=== PATIENT | male | born 1995 | race Caucasian/White ===

== ENCOUNTER 2019-07-03 15:57 | Emergency (ER) | payer MEDICAID ==
--- NOTE | 2019-07-03 17:32 | ED Physician Documentation ---
History of Present Illness - Stated complaint Stated Complaint: N/V/D - Chief complaint Chief Complaint: General - History obtained from History obtained from: Patient - History of Present Illness Timing: How many weeks ago (8) - Additonal information Additional information: This is a 24-year-old presents [place] in early May he started to have Weekly episodes of crampy rumbling abdominal pain that would be relieved with a diarrheal stool. Says it only happened 1 time in the morning then he will go to the bathroom and have a stool about every couple hours through that day and then things will be normal. He gets real sweaty before he has the bowel movement. He has not done any significant dietary changes are noted anything that results in this episodes. He has not seen blood in the stool. He rarely drinks alcohol and denies use of any drugs including marijuana. He has developed a little bit of low back pain. No fever. He has not yet established with a primary care provider and he is working at a [employer] up in [place]. Review of Systems Constitutional: denies: Fever GI: reports: Abdominal Pain, Nausea, Diarrhea. denies: Bloody / black stool : denies: Dysuria Musculoskeletal: reports: Back pain PD PAST MEDICAL HISTORY - Past Medical History Past Medical History: No Cardiovascular: None Respiratory: None Neuro: None Endocrine/Autoimmune: None GI: None : None HEENT: None Psych: None Musculoskeletal: None Derm: None - Past Surgical History Past Surgical History: No - Present Medications Home Medications: Ambulatory Orders Medication Instructions Recorded Confirmed No Known Home Medications 07/03/19 07/03/19 - Allergies Allergies/Adverse Reactions: Allergies Allergy/AdvReac Type Severity Reaction Status Date / Time No Known Drug Allergies Allergy Verified 07/03/19 16:20 - Social History Does the pt smoke?: Yes Smoking Status: Current every day smoker Does the pt drink ETOH?: Yes Does the pt have substance abuse?: No - Immunizations Immunizations are current?: No Immunizations: Other immun not current - POLST Patient has POLST: No PD ED PE NORMAL - Vitals Vital signs reviewed: Yes - General General: Alert and oriented X 3, No acute distress, Well developed/nourished, Other (Thin 24-year-old who is not in any acute distress.) - HEENT HEENT: Atraumatic, PERRL, EOMI, Moist mucous membranes, Other (No scleral icterus) - Neck Neck: Supple, no meningeal sign, No adenopathy - Cardiac Cardiac: RRR, No murmur, Strong equal pulses - Respiratory Respiratory: No respiratory distress, Clear bilaterally - Abdomen Abdomen: Normal bowel sounds, Soft, Non tender, Non distended, No organomegaly - Extremities Extremities: No edema - Neuro Neuro: Alert and oriented X 3, brim curler 2-12 intact, No motor deficit, No sensory deficit, Normal speech Results - Vitals Vitals: Vital Signs - 24 hr 07/03/19 16:17 Temperature 36.8 C Heart Rate 64 Respiratory 18 Rate Blood Pressure 141/62 H O2 Saturation 99 Oxygen O2 Source Room air PD MEDICAL DECISION MAKING - ED course Complexity details: d/w patient ED course: Is a 24-year-old with weekly episodes of diarrhea. He has no apparent dehydration on clinical exam and has a nonsurgical abdomen. 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 He states understanding. Departure - Departure Disposition: 01 Home, Self Care Clinical Impression: Diarrhea Qualifiers: Diarrhea type: unspecified type Qualified Code(s): R19.7 - Diarrhea, unspecified Condition: Good Instructions: ED IBS Follow-Up: [facility] [Provider Group] Comments: You have been provided a requisition for stool studies. You should bring a specimen to the lab for them to evaluate for sources of infection. I would highly recommend that you follow-up with a primary care provider about your persistent symptoms. If your stool studies are negative you should probably have an endoscopy performed.
[2019-07-03 18:10] VITALS: BP 132/64
== END 2019-07-03 18:12 | disposition home or self-care (01) ==
LOC: ED 15:57
DX: R19.7 Diarrhea, unspecified (principal); F17.200 Nicotine dependence, unspecified, uncomplicated
CPT/HCPCS: 99282; 99284

== ENCOUNTER 2022-07-26 00:27 | Emergency (ER) | payer MEDICAID ==
[2022-07-26 00:57] LABS: BASOPHILS % (AUTO) 0.5 %; EOSINOPHILS # (AUTO) 0.2 10^3/uL (0.0-0.7); EOSINOPHILS % (AUTO) 2.2 %; HCT - HEMATOCRIT 45.7 % (42.0-52.0); LYMPHOCYTES # (AUTO) 2.3 10^3/uL (1.5-3.5); LYMPHOCYTES % (AUTO) 31.4 %; MEAN CORPUSCULAR HEMOGLOBIN 28.2 pg (27.0-31.0); MEAN CORPUSCULAR HGB CONC 32.8 g/dL (32.0-36.0); MEAN CORPUSCULAR VOLUME 85.9 fL (80.0-94.0); MEAN PLATELET VOLUME 10.2 fL (7.4-11.4); MONOCYTES # (AUTO) 1.1 10^3/uL (0.0-1.0); MONOCYTES % (AUTO) 14.6 %; NEUTROPHILS # (AUTO) 3.8 10^3/uL (1.5-6.6); NEUTROPHILS % (AUTO) 51.2 %; PLT - PLATELET COUNT 109 10^3/uL (130-450); RED BLOOD COUNT 5.32 10^6/uL (4.70-6.10); RED CELL DISTRIBUTION WIDTH 11.5 % (12.0-15.0); WHITE BLOOD COUNT 7.4 x10^3/uL (4.8-10.8)
--- NOTE | 2022-07-26 01:04 | ED Physician Documentation ---
PD HPI ABD PAIN - Stated complaint Stated Complaint: ABD PX/CRAMP - Chief complaint Chief Complaint: Abd Pain - History obtained from History obtained from: Patient - History of Present Illness Timing - onset: How many hours ago (12) Timing - duration: Hours (12) Timing - details: Gradual onset, Still present (has worsened the past 3 hours.) Quality: Cramping, Aching, Pain Location: Periumbilical, RLQ Radiation: No: Chest, Lower back Improved by: Laying still. No: BM Worsened by: Eating, Moving, Palpation. No: Breathing Associated symptoms: Nausea, Diarrhea (single loose stool shortly after pain onset.), Loss of appetite. No: Fever, Vomiting, Chest pain, Near syncope / syncope Similar symptoms before: Has not had sx before Recently seen: Not recently seen Review of Systems Constitutional: reports: Myalgias. denies: Fever, Chills Nose: denies: Rhinorrhea / runny nose, Congestion Throat: denies: Sore throat Cardiac: denies: Chest pain / pressure, Palpitations Respiratory: denies: Dyspnea, Cough GI: reports: Abdominal Pain (just the past 12 hours.), Nausea, Diarrhea (single episdoe today). denies: Abdominal Swelling, Vomiting, Constipation, Bloody / black stool : denies: Dysuria, Frequency Skin: reports: Other (several months of progressive pathcy darker colored areas on abd and spread to chest and upper arms. no redness nor tender.) Musculoskeletal: denies: Neck pain, Back pain Neurologic: reports: Generalized weakness. denies: Near syncope, Altered mental status, Headache PD PAST MEDICAL HISTORY - Past Medical History Cardiovascular: None Respiratory: None Neuro: None Endocrine/Autoimmune: None GI: None : None HEENT: None Psych: None Musculoskeletal: None Derm: None - Past Surgical History Past Surgical History: No - Present Medications Home Medications: Ambulatory Orders Medication Instructions Recorded Confirmed Ketoconazole [Nizoral A-D] 1 applic TP DAILY 5 Days #125 ml 07/26/22 Ondansetron Odt [Zofran] 4 mg TL Q6H PRN #10 tablet 07/26/22 Oxycodone HCl/Acetaminophen 1 each PO Q6H PRN #10 tablet 07/26/22 [Percocet 5-325 mg Tablet] - Allergies Allergies/Adverse Reactions: Allergies Allergy/AdvReac Type Severity Reaction Status Date / Time No Known Drug Allergies Allergy Verified 07/26/22 00:38 - Social History Does the pt smoke?: Yes Smoking Status: Current every day smoker Does the pt drink ETOH?: Yes Does the pt have substance abuse?: No - Immunizations Immunizations are current?: No Immunizations: Other immun not current - POLST Patient has POLST: No PD ED PE NORMAL - Vitals Vital signs reviewed: Yes - General General: Alert and oriented X 3, Well developed/nourished - HEENT HEENT: Pharynx benign - Neck Neck: Supple, no meningeal sign, No adenopathy - Cardiac Cardiac: RRR, No murmur - Respiratory Respiratory: No respiratory distress, Clear bilaterally - Abdomen Abdomen: Soft, Non distended, No organomegaly, Other (Markedly tender in the epigastric to right upper quadrant area with guarding and percussion tenderness. Lower abdomen is nontender.) - Male Male : Deferred - Rectal Rectal: Deferred - Back Back: No CVA TTP - Derm Derm: Normal color, Warm and dry, Other (abd/chest and upper arms with patchy, nonscaling, nonraised, hyperpigmented variable sized/shaped areas of skin change. appears c/w tinea versicolor. ) - Extremities Extremities: No tenderness to palpate, Normal ROM s pain, No edema, No calf tenderness / cord - Neuro Neuro: Alert and oriented X 3, No motor deficit, Normal speech Eye Opening: Spontaneous Motor: Obeys Commands Verbal: Oriented GCS Score: 15 Results - Vitals Vitals: Vital Signs - 24 hr 07/26/22 07/26/22 07/26/22 00:35 02:31 02:57 Temperature 36.9 C Heart Rate 80 77 73 Respiratory 20 18 14 Rate Blood Pressure 122/101 H 120/78 124/16 L O2 Saturation 100 100 100 07/26/22 07/26/22 04:00 05:49 Temperature Heart Rate 65 72 Respiratory 17 18 Rate Blood Pressure 140/73 H 135/92 H O2 Saturation 98 100 Oxygen O2 Source Room air - Labs Labs: Laboratory Tests 07/26/22 07/26/22 07/26/22 00:50 00:50 02:28 WBC 7.4 RBC 5.32 Hgb 15.0 Hct 45.7 MCV 85.9 MCH 28.2 MCHC 32.8 RDW 11.5 L Plt Count 109 L MPV 10.2 Neut # (Auto) 3.8 Lymph # (Auto) 2.3 [place] # (Auto) 1.1 H Eos # (Auto) 0.2 Baso # (Auto) 0.0 Absolute Nucleated RBC 0.00 Nucleated RBC % 0.0 Sodium 139 Potassium 3.8 Chloride 103 Carbon Dioxide 25 Anion Gap 11.0 BUN 17 Creatinine 0.9 Estimated GFR (MDRD) 100 Glucose 92 Calcium 9.0 Total Bilirubin 0.7 AST 18 ALT 13 Alkaline Phosphatase 52 Total Protein 7.6 Albumin 4.4 Globulin 3.2 Albumin/Globulin Ratio 1.4 Lipase 31 Urine Color YELLOW Urine Clarity CLEAR Urine pH 6.5 Ur Specific [place] 1.010 Urine Protein NEGATIVE Urine Glucose (UA) NEGATIVE Urine Ketones NEGATIVE Urine Occult Blood NEGATIVE Urine Nitrite NEGATIVE Urine Bilirubin NEGATIVE Urine Urobilinogen 1 (NORMAL) Ur Leukocyte Esterase NEGATIVE Ur Microscopic Review NOT INDICATED Urine Culture Comments NOT INDICATED - Rads (name of study) lower abd U/S Radiology: Prelim report reviewed (nonvisualization of the appendix. Some mesenteric nodes. ), See rad report abd MRI Radiology: Prelim report reviewed (normal appendix. suggestion mural wall thickening of distal small bowel. ), See rad report (normal appendix. equivocal mural thickening distal small bowel. ) PD Medical Decision Making - ED course Complexity details: reviewed results, re-evaluated patient (he is still having periumbilical to RLQ tenderness with less referred from other areas. No rebound still. ), considered differential (very concerning for appendicitis. COnsider colitis, ureteral stone, diverticulitis, or other process. ), d/w patient Reviewed Lab Results: Ultrasound did not definitively show the appendix. There was some question of mesenteric lymph nodes. His white count and chemistry panel were normal but however he does have very notable tenderness in the periumbilical to right lower quadrant area concerning for appendicitis. This point I feel we need to evaluate better. Unfortunately our CT scanner is down for the weekend. However we do have available in its place either ultrasound as we have already tried and also MRI. I did order an abdominal MRI. Subsequently this did result with the finding of a normal appendix and some distal bowel mural wall thickening suggesting colitis. Drug Therapy Requiring Monitoring for Toxicity: given IV medications for nausea and pain with reasonable improvement. Still having some pain. Departure - Departure Disposition: 01 Home, Self Care Clinical Impression: Acute colitis, Tinea versicolor Abdominal pain Qualifiers: Abdominal location: right lower quadrant Qualified Code(s): R10.31 - Right lower quadrant pain Clinical Impression: (Ruled Out): Appendicitis Condition: Stable Record reviewed to determine appropriate education?: Yes Instructions: ED T Versicolor Infec Fungal, ED Abdominal Pain Unkn Cause Male Follow-Up: [facility] [place] [Provider Group] Prescriptions: Ketoconazole [Nizoral A-D] 1 applic TP DAILY 5 Days #125 ml Oxycodone HCl/Acetaminophen [Percocet 5-325 mg Tablet] 1 each PO Q6H PRN #10 tablet PRN Reason: pain Ondansetron Odt [Zofran] 4 mg TL Q6H PRN #10 tablet PRN Reason: Nausea / Vomiting Comments: Frequent fluids and bland food over the next day or 2. Your MRI showed normal appendix. However there was some suggestion of thickening of the small bowel wall (colitis). Commonly this can be related to a irritation from diet or an inflammatory cause. It could also be a viral infection. It does not have the character or appearance of bacterial infection. At this point we treated with anti-inflammatories, nausea medicine, adding in Tylenol every 4-6 hours if needed for pain or Percocet if needed for worse pain. I would intend this short-term over the next 2 or 3 days at most. Recheck if not better in that timeframe and return if worsening. Your skin discoloration looks like a superficial fungal type inflammatory change called tinea versicolor. We can try treating this with ketoconazole shampoo that you would use over the whole body with a face cloth or 6 sponge daily for 5 or 6 days. This should help improve it. I sent your prescriptions to [facility] pharmacy in [place]. Forms: Activity restrictions Discharge Date/Time: 07/26/22 05:50
[2022-07-26 01:13] LABS: ALBUMIN 4.4 g/dL (3.2-5.5); ALBUMIN/GLOBULIN RATIO 1.4 (1.0-2.2); BILIRUBIN,TOTAL 0.7 mg/dL (0.2-1.0); CREATININE 0.9 mg/dL (0.6-1.2); POTASSIUM 3.8 mmol/L (3.5-5.0); TOTAL PROTEIN 7.6 g/dL (6.7-8.2)
[2022-07-26] MEDS ORDERED: SODIUM CHLORIDE 0.9% 1,000 ML IV STA (01:20)
[2022-07-26] MEDS ORDERED: KETOROLAC 15 MG/ML VIAL IVP STA (01:20)
[2022-07-26] MEDS ORDERED: HYDROmorphone 1 MG/ML CARPUJECT IVP STA (01:20)
[2022-07-26] MEDS ORDERED: ONDANSETRON 4 MG/2 ML VIAL IVP STA (01:20)
[2022-07-26 02:33] LABS: BILIRUBIN,URINE NEGATIVE (NEGATIVE); GLUCOSE, URINE (UA) NEGATIVE (NEGATIVE); KETONES,URINE (UA) NEGATIVE (NEGATIVE); LEUKOCYTE ESTERASE, URINE NEGATIVE (NEGATIVE); NITRITE,URINE NEGATIVE (NEGATIVE); OCCULT BLOOD,URINE NEGATIVE (NEGATIVE); PH,URINE 6.5 PH (5.0-7.5); PROTEIN,URINE NEGATIVE (NEGATIVE); UROBILINOGEN,URINE 1 (NORMAL) E.U./dL (NORMAL)
[2022-07-26 02:34] LABS: CLARITY,URINE CLEAR (CLEAR)
[2022-07-26] MEDS ORDERED: HYDROmorphone 0.5 MG/0.5 ML SYRINGE IVP STA (05:18)
[2022-07-26] MEDS ORDERED: ONDANSETRON ODT 4 MG Prepack 2 TL PRN (05:18)
[2022-07-26] MEDS ORDERED: oxyCODONE/ACET 5/325 Prepack 4 PO STA (05:18)
[2022-07-26 05:50] VITALS: BP 135/92
--- NOTE | 2022-07-26 08:35 | Ultrasound Report ---
PROCEDURE: Abdomen Limited INDICATIONS: umbilical/RLQ abd pain, ? appy. TECHNIQUE: Real-time focused scanning was performed of the abdomen, with image documentation. COMPARISON: None FINDINGS: Appendix is not definitively identified. There is no free fluid seen in right lower quadrant. No right lower quadrant lymphadenopathy. Subcent imeter lymph nodes are seen within right lower quadrant measures up to 6 mm in size. No tendinosis is noted on the exam. IMPRESSION: 1. Appendix is not visualized. No secondary sonographic signs of acute appendicitis. 2. Subcentimeter lymph nodes in right lower quadrant mesentery measures up to 6 mm in size which coul d represent mesenteric adenitis. No discrepancies. Reviewed by: Young Mi MD on 07/26/2022 8:34 AM PST Approved by: Yougn Mi MD on 07/26/2022 8:34 AM PST Station ID: [id number]
--- NOTE | 2022-07-26 09:04 | MRI Report ---
PROCEDURE: PELVIS WO INDICATIONS: RIGHT LOWER QUAD ABD PAIN TECHNIQUE: Noncontrast coronal T1 spin echo and STIR through the pelvis. Sagittal T2 FSE with fat saturation, o blique axial PD FSE and T2 FSE with fat saturation through the symphysis pubis. COMPARISON: Limited ultrasound of abdomen dated 07/26/2022. FINDINGS: Image quality: Excellent. Soft tissues: Visualized portion of liver, spleen, pancreas, gallbladder and bilateral adrenal glands shows no claudette s abnormality. Visualized portion of bilateral kidneys show no hydronephrosis or hydroureter. No waqas l lesion. There is no evidence of bowel obstruction. No abnormal bowel wall thickening. No mesenteric fat stran ding is seen in right lower quadrant abdomen. Appendix is visualized in right lower quadrant abdomen and is normal in size and appearance. There are suggestion of small less than 5 mm right lower quadrant mesenteric lymph nodes. No peritone al or retroperitoneal lymphadenopathy by size criteria. No peritoneal free fluid. Abdominal aorta and IVC are normal in size. Urinary bladder is distended and shows no gross bladder w all abnormality. Bones and joints: There is no marrow edema. No fracture or dislocation. No suspicious intraosseous le sions. No evidence of avascular necrosis of femoral heads. IMPRESSION: 1. No evidence of acute appendicitis. No bowel obstruction. No peritoneal free fluid. 2. Nonspecific small lymph nodes seen in right lower quadrant mesentery which could represent mesente shanna adenitis suggest clinical correlation. Reviewed by: Young Mi MD on 07/26/2022 9:03 AM PST Approved by: Young Mi MD on 07/26/2022 9:03 AM PST Station ID: [id number]
== END 2022-07-26 05:50 | disposition home or self-care (01) ==
LOC: ED 00:27
DX: K52.9 Noninfective gastroenteritis and colitis, unspecified (principal); B36.0 Pityriasis versicolor; F17.200 Nicotine dependence, unspecified, uncomplicated
CPT/HCPCS: 36415; 72195; 76705; 80053; 81003; 83690; 85025; 96361; 96374; 96375; 99284; J1170; 81001; 87086